=== PATIENT | female | born 1970 | race Caucasian/White ===

== ENCOUNTER 2024-04-14 23:16 | Day surgery (SDC) | payer OTHER, SELFPAY ==
[2024-04-14 23:45] VITALS: BP 175/95; PULSE 115; RESP 20; TEMP 36.8; O2SAT 99; BMI 22.0
[2024-04-15] VITALS (22 sets, daily range): BP systolic 130–187; BP diastolic 75–99; PULSE 95–122; RESP 12–20; TEMP 36.2–37.3; O2SAT 91–100; BMI 22.0
--- NOTE | 2024-04-15 | CRLHL7_ITS ---
For Patients: As a result of the Century Cures Act, medical imaging exams and procedure reports are released immediately into your electronic medical record. You may view this report before your referring provider. If you have questions, please contact your health care provider. Indication: Shortness of breath, upper abdominal pain, bilateral flank pain Technique: CTA of the chest with contrast and postcontrast CT of the abdomen and pelvis with multiplanar reformats following 95 mL Isovue 370 IV. Comparison: None Findings: Chest: Pulmonary arteries: No pulmonary embolism appreciated. Lungs: No consolidation. No effusion. No pneumothorax. Mediastinum: No acute abnormality appreciated. Lymph nodes: No gross lymphadenopathy. Soft tissues: No acute abnormality appreciated. Bones: No acute abnormality appreciated. Abdomen and Pelvis: Hepatobiliary: No significant parenchymal abnormality is appreciated. Cholelithiasis with dilated gallbladder, wall thickening, and adjacent fluid. Spleen: Unremarkable. Pancreas: No acute abnormality appreciated. Adrenal glands: No acute abnormality appreciated. Kidneys: No significant parenchymal abnormality appreciated. No visualized calculi. No hydronephrosis. Bowel: No obstruction. No focal perienteric or pericolonic stranding is appreciated. The appendix is visualized and appears unremarkable. Vascular: Calcified atherosclerosis. Lymph nodes: No gross lymphadenopathy. Peritoneum: No free air. No free fluid. : No acute abnormality appreciated. Soft tissues: No acute abnormality appreciated. Bones: No acute fracture. No lytic or blastic lesion. Impression: Acute cholecystitis. No other acute abnormality appreciated. Please note that all CT scans at this facility use dose modulation, iterative reconstruction, and/or weight-based dosing when appropriate to reduce radiation dose to as low as reasonably achievable. Dictated by Crispin Ravi MD @ 04/15/2024 1:46:20 AM (Electronically Signed)
--- NOTE | 2024-04-15 00:05 | CRLHL7_ITS ---
For Patients: As a result of the Century Cures Act, medical imaging exams and procedure reports are released immediately into your electronic medical record. You may view this report before your referring provider. If you have questions, please contact your health care provider. Indication: Right upper quadrant pain Technique: Limited abdominal ultrasound. Evaluation of the liver, gallbladder, common bile duct, pancreas, right kidney, and aorta/IVC. Grayscale and color Doppler imaging utilized. Comparison: None Findings: Liver: Unremarkable size and echotexture. Gallbladder: Multiple stones noted. Wall thickening and trace fluid. Technologist reports positive sonographic Hdez`s sign. Common bile duct: 7 mm. Pancreas: Partially obscured. Visualized portions are unremarkable. Right kidney: Unremarkable. Aorta/IVC: Unremarkable. Impression: 1. Findings suspicious for acute cholecystitis. 2. Slight dilation of the common bile duct, recommend correlation with LFTs for choledocholithiasis. If there is strong clinical concern, MRI/MRCP could be considered. Dictated by Crispin Ravi MD @ 04/15/2024 1:23:54 AM (Electronically Signed)
--- NOTE | 2024-04-15 00:08 | ED_ITS ---
HPI - Abdominal Pain General Date Seen: 04/15/24 Chief Complaint: Abdominal Pain Stated Complaint: Abdominal pain Time Seen by Provider: 04/14/24 23:53 Source: patient Mode of arrival: ambulatory Limitations: no limitations History of Present Illness HPI narrative: Patient is a 53-year-old female presenting to the emergency department for upper abdominal pain. She states she knows symptoms 1st this morning when she woke up. Last night she states she was having nausea with vomiting and diarrhea. She has no nausea is somewhat improved today and she has not vomited he has today. Denies ever having pain like this before. Is has been able to eat and drink small amounts and has not noticed any change and her symptoms when she does this. Did take Zofran which has helped with the nausea. Denies any history of kidney stones. No previous abdominal surgeries other than a C- section. States seem like most of the pain is in the right upper quadrant. Does have some pain to both flanks worse in the right flank compared to the left. No history of kidney stones. He describes the pain as a dull ache. Notes before she came in she had a short episode of left-sided chest pain that h as since fully resolved. No history of heart disease. Denies fevers, chills, weakness, numbness, headache, vision changes, headache. Does states she has some intermittent shortness of breath but she feels like it is mostly due to the pain in her epigastric region. Related Data Home Medications ?Medication ?Instructions ?Recorded ?Confirmed atorvastatin 20 mg tablet 20 mg PO QPM 04/15/24 04/15/24 lisinopril 20 mg tablet 20 mg PO DAILY 04/15/24 04/15/24 metformin 500 mg tablet,extended 1,000 mg PO BID 04/15/24 04/15/24 release 24 hr semaglutide 7 mg tablet (Rybelsus) 7 mg PO DAILY 04/15/24 04/15/24 Allergies Allergy/AdvReac Type Severity Reaction Status Date / Time ciprofloxacin Allergy Mild Hives Verified 04/15/24 01:29 doxycycline Allergy Mild Hives Verified 04/15/24 01:29 hydrochlorothiazide Allergy Mild Hives Verified 04/15/24 01:29 Penicillins Allergy Mild Hives Verified 04/15/24 01:29 Review of Systems Status of ROS Reports: 10 or more systems reviewed and unremarkable except as noted in History and below PFS PFSH Social History Smoking Status: Never smoker Second hand tobacco smoke exposure: No How often do you have a drink containing alcohol: never AUDIT-C Alcohol total score: 0 Non-prescribed substance use: denies use Exam Narrative: Exam Narrative: Const: Well-nourished, Well-developed, in mild distress Eyes: PERRL, no conjunctival injection, and symmetrical lids HENT: Atraumatic external nose and ears. Moist mucous membranes. Neck: Symmetric, trachea midline, No thyromegaly. CVS: RRR, No murmurs or gallops. Peripheral pulses 2+ and equal in all extremities RESP: Unlabored respiratory effort. Clear to auscultation bilaterally. GI: Mild upper abdominal tenderness to palpation worse in the right upper quadrant. Nondistended, No rebound or guarding. Mild bilateral flank pain worse on the right MSK:Extremities w/o deformity, Normal Active ROM Skin: Warm, Dry. No rashes or lesions. Neuro: Normal Muscle tone, No focal neurological deficits. Psych: Awake, Alert, & Oriented x3. Appropriate mood and affect. Const: Vital Signs, click to edit/add: Vital Signs - 24 hr 04/14/24 23:45 Temperature 98.2 F Pulse Rate [Right Pulse Oximeter] 115 H Respiratory Rate 20 Blood Pressure [Ri ght Upper Arm] 175/95 H Pulse Oximetry 99 Oxygen Delivery Me thod Room Air Course Vital Signs Vital signs: Initial Vital Signs Temperature 98.2 F 04/14/24 23:45 Temperature Source Temporal Artery Scan 04/14/24 23:45 Pulse Rate 115 H 04/14/24 23:45 Respiratory Rate 20 04/14/24 23:45 Blood Pressure 175/95 H 04/14/24 23:45 Blood Pressure Mean 121 H 04/14/24 23:45 Blood Pressure Position Sitting 04/14/24 23:45 Pulse Oximetry 99 04/14/24 23:45 Oxygen Delivery Method Room Air 04/14/24 23:45 Vital Signs Temperature 98.2 F 04/14/24 23:45 Pulse Rate 115 H 04/14/24 23:45 Respiratory Rate 20 04/14/24 23:45 Blood Pressure 175/95 H 04/14/24 23:45 Pulse Oximetry 99 04/14/24 23:45 Oxygen Delivery Method Room Air 04/14/24 23:45 Temperature 98.2 F 04/14/24 23:45 Pulse Rate 115 H 04/14/24 23:45 Respiratory Rate 20 04/14/24 23:45 Blood Pressure 175/95 H 04/14/24 23:45 Pulse Oximetry 99 04/14/24 23:45 Oxygen Delivery Method Room Air 04/14/24 23:45 Medications Administered Medications: Discontinued Medications Generic Name Dose Route Start Last Admin Trade Name Gela PRN Reason Stop Dose Admin Sodium Chloride 500 mls @ 1,000 mls/hr 04/15/24 00:15 04/15/24 00:56 0.9 % Sodium Chloride 500 Ml IV 04/15/24 00:44 Infused .Q30M ONE Infusion Sodium Chloride 500 mls @ 1,000 mls/hr 04/15/24 00:48 04/15/24 01:27 0.9 % Sodium Chloride 500 Ml IV 04/15/24 01:17 Infused .Q30M ONE Infusion MDM - Abdominal Pain MDM Narrative Medical decision making narrative: Patient is a 53-year-old female presenting to the emergency department for abdominal pain. Pain is in the upper abdominal region. Differential at this time includes gastritis, peptic ulcer, gallbladder or liver disease, pancreatitis. With of bilateral flank pain there is some concern for kidney stones. As she is otherwise appearing well it seems unlikely to be a ruptured AAA. Since she also had episode of chest pain and has some shortness of breath that seems to be due to her abdominal pain I will evaluate for ACS, pneumonia, pneumothorax, PE. She cannot be perced out. Will order D-dimer. Also order EKG, troponin, lipase, urinalysis, CBC, CMP, COVID/flu swab. Is not requesting anything for pain or nausea at this time. White blood cell count came back at 16.14. She now meets criteria for SIRS so lactate and blood cultures were ordered. CMP shows no concerning abnormalities other than a slightly low sodium at 01:31. Unlikely related to her symptoms. Lipase within normal limits. Urinalysis shows no concerning findings. COVID/ flu shows no concerning findings. EKG shows sinus tachycardia but no other concerning findings. Troponin within normal limits. D-dimer is elevated at 0.8 for an CTA of the chest was ordered. Lactate returned at 2.8. Patient has been given a L total of IV fluids. Her heart rates now seems to be below 110. She is satting 95-100% on room air. Vital signs of otherwise been stable. While waiting for the ultrasound since she is going to be the CT of the chest abdomen of the pelvis with IV contrast was also ordered. Ultrasound shows signs of cholecystitis. There is some mild common bile duct dilation but with normal LFTs choledocholithiasis seems unlikely. Do not believe MRI/MRCP is necessary at this time. I spoke to the on-call general surgeon, Dr. Balderrama, and she recommends admission to the hospitalist service for surgery tomorrow. Due the patient's allergies recommended her dependent. Patient is agreeable to this plan. Patient's tachycardia is likely secondary to the infection. CT scans reviewed by myself the radiologist showed no acute concerning abnormalities other than the acute cholecystitis. Lab Data Labs: Lab Results 04/15/24 04/15/24 04/15/24 Range/Units 00:00 00:10 00:40 WBC 16.14 H (4.50-11.00) K/uL RBC 4.36 (4.00-5.20) m/uL Hgb 12.5 (12.0-16.0) gm/dL Hct 37.7 (33.0-51.0) % MCV 87 (80-100) fL MCH 29 (26-34) pg MCHC 33 (32-36) gm/dL RDW Coeff of Ghassan 11.9 (11.5-15.5) % Plt Count 334 (140-440) K/uL Neut % (Auto) 77.8 H (42.0-72.0) % Lymph % (Auto) 14.9 L (20-44) % [place] % (Auto) 6.6 (0.0-11.0) % Eos % (Auto) 0.3 (0.0-7.0) % Baso % (Auto) 0.3 (0.0-3.0) % Neut # (Auto) 12.60 H (1.7-7.0) K/uL Lymph # (Auto) 2.40 (0.90-2.90) K/uL [place] # (Auto) 1.10 H (0.00-0.90) K/UL Eos # (Auto) 0.00 (0.00-0.50) K/uL Baso # (Auto) 0.00 (0.00-0.30) K/uL Abs Immat Gran (auto) 0.00 (0.00-0.30) K/uL Imm/Tot Granulo (auto) 0.1 % D-Dimer Quant (PE/DVT) 0.84 H (0.00-0.50) ug/ml Sodium 131 L (135-149) mmol/L Potassium 4.2 (3.6-5.1) mmol/L Chloride 95 L (96-114) mmol/L Carbon Dioxide 25 (20-32) mmol/L Anion Gap 11 (7-15) mEq/L BUN 13 (7-30) mg/dL Creatinine 0.5 (0.5-1.5) mg/dL Estimated Creat Clear 128.24 Estimated GFR 111 ml/min Glucose 142 H (60-115) mg/dL Lactate 2.8 H (0.5-1.9) mmol/L Calcium 10.9 H (8.4-10.6) mg/dL Total Bilirubin 0.5 (0.1-1.5) mg/dL AST 24 (12-35) U/L ALT 20 (4-35) U/L Alkaline Phosphatase 94 (40-150) U/L Total Protein 7.5 (6.0-8.3) g/dL Albumin 4.5 (3.3-5.0) g/dL Lipase 183 (23-300) U/L Urine Color Yellow (Yellow) Urine Appearance Clear (Clear) Urine pH 7.0 (5.0-8.5) Ur Specific [place] 1.020 (1.000-1.030) Urine Protein Negative (Negative) Urine Glucose (UA) Negative (Negative) Urine Ketones Trace A (Negative) Urine Blood Negative (Negative) Urine Nitrite Negative (Negative) Urine Bilirubin Negative (Negative) Urine Urobilinogen 0.2 (0.2-1.0) Ur Leukocyte Esterase 1+ A (Negative) Urine RBC 0-2 (0-2) Urine WBC 0-2 (0-5) Ur Squamous Epith Cells Few (None-Few) Urine Bacteria Few A (None) SARS-CoV-2 (PCR) Negative SARS-CoV-2 (Negative) Influenza Type A (PCR) Negative PCR FLU A (Negative) Influenza Type B (PCR) Negative PCR FLU B (Negative) POC Troponin I 0.01 (0.01-0.04) ng/ml Imaging Data CTA chest: Attestation: I have reviewed the pertinent imaging results. Radiologist's impression: Pulmonary arteries: No pulmonary embolism appreciated. Lungs: No consolidation. No effusion. No pneumothorax. Mediastinum: No acute abnormality appreciated. Lymph nodes: No gross lymphadenopathy. Soft tissues: No acute abnormality appreciated. Bones: No acute abnormality appreciated. Please note that all CT scans at this facility use dose modulation, iterative reconstruction, and/or weight-based dosing when appropriate to reduce radiation dose to as low as reasonably achievable. Dictated by Crispin Ravi MD @ 04/15/2024 1:46:[address] scan abdomen pelvis: Attestation: I have reviewed the pertinent imaging results. Radiologist's impression: Hepatobiliary: No significant parenchymal abnormality is appreciated. Cholelithiasis with dilated gallbladder, wall thickening, and adjacent fluid. Spleen: Unremarkable. Pancreas: No acute abnormality appreciated. Adrenal glands: No acute abnormality appreciated. Kidneys: No significant parenchymal abnormality appreciated. No visualized ranjana culi. No hydronephrosis. Bowel: No obstruction. No focal perienteric or pericolonic stranding is appreciated. The appendix is visualized and appears unremarkable. Vascular: Calcified atherosclerosis. Lymph nodes: No gross lymphadenopathy. Peritoneum: No free air. No free fluid. : No acute abnormality appreciated. Soft tissues: No acute abnormality appreciated. Bones: No acute fracture. No lytic or blastic lesion. Impression: Acute cholecystitis. No other acute abnormality appreciated. Please note that all CT scans at this facility use dose modulation, iterative reconstruction, and/or weight-based dosing when appropriate to reduce radiation dose to as low as reasonably achievable. Dictated by Crispin Ravi MD @ 04/15/2024 1:46:00 AM US - abdomen: Attestation: I have reviewed the pertinent imaging results. Radiologist's impression: 1. Findings suspicious for acute cholecystitis. 2. Slight dilation of the common bile duct, recommend correlation with LFTs for choledocholithiasis. If there is strong clinical concern, MRI/MRCP could be considered. Dictated by Crispin Ravi MD @ 04/15/2024 1:23:54 AM ECG Data Attestation: I personally reviewed and interpreted this ECG as follows: Prior ECG tracings: not available for review Interpretation: EKG shows sinus tachycardia with a rate of 119 beats per minute, normal intervals, normal axis, no ST or T-wave abnormalities. Discharge Plan Discharge Clinical Impression: Acute cholecystitis Patient Disposition: Admitted As Observation Condition: Stable Prescriptions: No Action atorvastatin 20 mg tablet 20 mg PO QPM lisinopril 20 mg tablet 20 mg PO DAILY metformin 500 mg tablet extended release 24 hr 1,000 mg PO BID Rybelsus 7 mg tablet 7 mg PO DAILY Follow Up/Referrals: Teresa Stockton PA-C [Primary Care Provider] -
[2024-04-15 00:17] LABS: Basophils Percent Auto 0.3 % (0.0-3.0); Eosinophils Percent Auto 0.3 % (0.0-7.0); Hematocrit 37.7 % (33.0-51.0); Hemoglobin* 12.5 gm/dL (12.0-16.0); Immature Granulocytes Pct Auto 0.1 %; Lymphocytes Percent Auto 14.9 % (20-44); Mean Corpuscular HGB Conc 33 gm/dL (32-36); Mean Corpuscular Hemoglobin 29 pg (26-34); Mean Corpuscular Volume 87 fL (80-100); Monocytes Percent Auto 6.6 % (0.0-11.0); Neutrophils Percent Auto 77.8 % (42.0-72.0); Platelet Count* 334 K/uL (140-440); RDW Coefficient of Variation % 11.9 % (11.5-15.5); Red Blood Count 4.36 m/uL (4.00-5.20); White Blood Count* 16.14 K/uL (4.50-11.00)
[2024-04-15 00:19] LABS: Slide Review Reflex No
[2024-04-15] MEDS: 0.9 % SODIUM CHLORIDE 500 ML 500 ML 1000 ML IV ×2 (00:24→00:55)
[2024-04-15 00:25] LABS: Troponin, Point-of-Care* 0.01 ng/ml (0.01-0.04)
[2024-04-15 00:29] LABS: Albumin* 4.5 g/dL (3.3-5.0)
[2024-04-15 00:30] LABS: Chloride* 95 mmol/L (96-114); Potassium* 4.2 mmol/L (3.6-5.1); Sodium* 131 mmol/L (135-149)
[2024-04-15 00:30] LABS: Appearance Urine Clear (Clear); Bilirubin Urine Negative (Negative); Blood Urine Negative (Negative); Color Urine Yellow (Yellow); Glucose Urine Negative (Negative); Ketones Urine Trace (Negative); Leukocyte Esterase Urine 1+ (Negative); Nitrite Urine Negative (Negative); Protein Urine Negative (Negative); Urobilinogen Urine 0.2 (0.2-1.0)
[2024-04-15 00:32] LABS: Alkaline Phosphatase* 94 U/L (40-150); Anion Gap 11 mEq/L (7-15); Aspartate Amino Transferase* 24 U/L (12-35); Bilirubin Total* 0.5 mg/dL (0.1-1.5); Carbon Dioxide* 25 mmol/L (20-32); Creatinine* 0.5 mg/dL (0.5-1.5); Est. Creatinine Clearance* 128.24; Estimated Glomerular Filt Rate 111 ml/min; Total Protein* 7.5 g/dL (6.0-8.3)
[2024-04-15 00:33] LABS: Alanine Aminotransferase* 20 U/L (4-35); Blood Urea Nitrogen* 13 mg/dL (7-30); Calcium* 10.9 mg/dL (8.4-10.6); D Dimer Quantitative* 0.84 ug/ml (0.00-0.50); Glucose* 142 mg/dL (60-115); Lipase* 183 U/L (23-300)
[2024-04-15 00:42] LABS: Bacteria Urine Few; RBC Urine 0-2 (0-2); Squamous Epithelial Cell Urine Few (None-Few); WBC Urine 0-2 (0-5)
[2024-04-15 00:47] LABS: Lactate Sepsis w/Reflex* 2.8 mmol/L (0.5-1.9)
[2024-04-15 00:49] LABS: PCR FLU A Negative PCR FLU A (Negative); PCR FLU B Negative PCR FLU B (Negative); SARS PCR* Negative SARS-CoV-2 (Negative)
[2024-04-15] MEDS: ERTAPENEM 1 GM in 0.9 % SODIUM CHLORIDE Mini-bag 100 ML IVPB (01:50)
[2024-04-15 02:22] LABS: Lactate Sepsis 2 Hour 2.8 mmol/L (0.5-1.9)
--- NOTE | 2024-04-15 07:03 | W.PM.TELEH&P ---
Telehealth- H&P: HPI History of Present Illness Date Seen: 04/15/24 Chief complaint: Abdominal pain Narrative: Cleopatra Acosta is seen as an Interactive Telehealth visit. Cleopatra Acosta is a 53 year old female with PMHx significant for HTN on lisinopril, type 2 diabetes on metformin and semaglutide who presented to emergency department with abdominal pain nausea and vomiting. Patient was sleeping and was easily arousable for interview. Briefly she says I came in because abdominal pain was not getting any better. She reports initially symptoms started as nausea and vomiting and then progressed to midepigastric abdominal pain which has been radiating to her back. She said I could not take the pain and decided come in for further evaluation. in ER patient was found to be tachycardic. Workup showed WBC 16.4. Hemoglobin 12.5, platelets 334. Sodium was 131, potassium 4.2, chloride 95, BUN 13, creatinine 0.5, glucose 142, initial lactate 2.8 and a repeat lactate was also 2.8. Calcium was 10.9, UA did show 1+ leukocyte Estrace urine WBC was 0-2. Nasal swab was negative for any SARS-CoV-2, influenza A or B. Patient in the ER also complained of some chest pain and cardiac workup included CTA chest which was negative. Troponin was negative. CT abdomen pelvis did show findings of cholelithiasis with dilated gallbladder, wall thickening and adjacent fluid concerning for acute cholecystitis. Abdominal ultrasound also confirmed findings suspicious for acute cholecystitis. Slight dilation of CBD recommend correlation with LFTs for choledocho cholelithiasis. General surgery was consulted and they recommended admission locally antibiotics. Hospitalist service was asked admit the patient who has been accepted by general surgery during November coagulable somnolently female with [id number] and a 3-year-old who came on when asked about anemia finale D General Generalized edema resolved bowel regimen was to go postoperatively once more. BUN (department currently taking 139 mg with negative one of the for possible lap jorge in the morning Review of Systems Narrative: Complete ROS was performed, pertinent positives and negatives per HPI. [facility] Social History What is your current living situation?: I presently have a place to live Problems where you live: no known problems Problems where you live details: N/A In the past 12 months, utilities in danger of being shut off: no In the past 12 mos, have been you worried that your food would run out before you had money to buy more?: never true In the past 12 mos, the food you bought just didn't last and you didn't have money to buy more?: never true Highest level of school completed/degree received: Bachelor's degree Smoking Status: Never smoker Second hand tobacco smoke exposure: Yes (Past) How often do you have a drink containing alcohol: 2-4 times a month Alcohol type: beer and wine How many standard drinks containing alcohol do you have on a typical day: 1 or 2 How often do you have six or more drinks on one occasion: Never AUDIT-C Alcohol total score: 2 Non-prescribed substance use: denies use Caffeine: Yes (Diet soda) How often does anyone, including family, friends and others, physically hurt you: never How often does anyone, including family, friends and others, insult or talk down to you: never How often does anyone, including family, friends and others, threaten you with harm: never How often does anyone, including family, friends and others, scream or curse at you: never service: No Meds Home Medications and Allergies Home Medications ?Medication ?Instructions ?Recorded ?Confirmed ?Type atorvastatin 20 mg tablet 20 mg PO QPM 04/15/24 04/15/24 History lisinopril 20 mg tablet 20 mg PO DAILY 04/15/24 04/15/24 History metformin 500 mg tablet,extended 1,000 mg PO BID 04/15/24 04/15/24 History release 24 hr semaglutide 7 mg tablet (Rybelsus) 7 mg PO DAILY 04/15/24 04/15/24 History Allergies Allergy/AdvReac Type Severity Reaction Status Date / Time ciprofloxacin Allergy Mild Hives Verified 04/15/24 01:29 doxycycline Allergy Mild Hives Verified 04/15/24 01:29 hydrochlorothiazide Allergy Mild Hives Verified 04/15/24 01:29 Penicillins Allergy Mild Hives Verified 04/15/24 01:29 Exam Narrative Exam Narrative: Physical Exam GENERAL: ?vital signs reviewed, well developed and nourished, in no distress HEENT: pupils are equal round and reactive to light, extraocular movements are grossly within normal limits and oral mucosa is moist. NECK: Supple HEART: Regular rate and rhythm without any rubs, murmurs, or gallops. LUNGS: Clear to auscultation bilaterally with good air movement throughout ABDOMEN: Observation from nurse assisted exam, abdomen appears soft, nontender, and nondistended with Positive bowel sounds noted. EXTREMITIES: Strength and sensation is observed to be grossly within normal limits in the upper and lower extremities.? No focal strength deficit is observed. SKIN:? Observed warm and dry with color normal Const Vital Signs, click to edit/add: Vital Signs - 24 hr 04/14/24 23:45 04/15/24 01:00 04/15/24 02:40 Temperature 98.2 F 98.2 F 98.2 F Pulse Rate [Left Pulse Oximeter] Pulse Rate [Right Pulse Oximeter] 115 H 95 95 Respiratory Rate 20 20 20 Blood Pressure [Left Arm] Blood Pressure [Right Upper Arm] 175/95 H 187/91 H 187/91 H Pulse Oximetry 99 99 Oxygen Delivery Method Room Air Room Air 04/15/24 02:43 04/15/24 02:43 Temperature 97.5 F L Pulse Rate [Left Pulse Oximeter] 99 Pulse Rate [Right Pulse Oximeter] Respiratory Rate 16 16 Blood Pressure [Left Arm] 176/99 H Blood Pressure [Right Upper Arm] Pulse Oximetry 97 97 Oxygen Delivery Method Room Air Room Air Hospitalist - H&P: Result Labs Labs: Short CBC 04/15/24 Range/Units 00:10 WBC 16.14 H (4.50-11.00) K/uL Hgb 12.5 (12.0-16.0) gm/dL Hct 37.7 (33.0-51.0) % Plt Count 334 (140-440) K/uL BMP 04/15/24 00:10 Sodium 131 L Potassium 4.2 Chloride 95 L Carbon Dioxide 25 BUN 13 Creatinine 0.5 Glucose 142 H Calcium 10.9 H Liver Function 04/15/24 Range/Units 00:10 Total Bilirubin 0.5 (0.1-1.5) mg/dL AST 24 (12-35) U/L ALT 20 (4-35) U/L Alkaline Phosphatase 94 (40-150) U/L Albumin 4.5 (3.3-5.0) g/dL Urine 11/23/24 Range/Units 00:00 Urine Color Yellow (Yellow) Urine Appearance Clear (Clear) Urine pH 7.0 (5.0-8.5) Ur Specific [place] 1.020 (1.000-1.030) Urine Protein Negative (Negative) Urine Glucose (UA) Negative (Negative) Assessment and Plan Assessment and plan (1) Acute cholecystitis: Status: Acute Plan Patient is a 53-year-old female with past medical history of type 2 diabetes, HTN who is presenting with abdominal pain nausea vomiting findings consistent with acute cholecystitis. She is also positive leukocytosis and tachycardia likely indicating sepsis. # Acute Cholecystitis #Sepsis with elevated lactate # Leukocytosis # Tachycardia - cont with IV fluids, pain medications and NPO. - general surgery eval in am. # Type 2 DM - hold oral medications - cont with sliding scale. # HTN - cont lisinopril. # DVT proph - hold for possible surgery in am. Telehealth: Statement Statement Telehealth Visit: Today's History and Physical is provided via interactive telehealth by Whit Dietz MD.? Patient is located at [facility].? Provider is located at [facility].? Nursing staff assisted with the patient's exam. The visit being done today meets criteria for a telehealth visit and the patient or patient?s parent/guardian is aware the visit is a telehealth visit. Camera Start Time: 05:52 Camera End Time: 06:01
--- NOTE | 2024-04-15 07:30 | PC.NURSE ---
End of shift note: Pt alert & oriented x 4 and able to make needs known. She transfers/ambulates independently. Pt NPO in preparation for surgery today. B/P noted to be elevated at 176/99 upon admission to med/surg though pt reports having White Coat Syndrome. Pt afebrile and on RA. She denies nausea when asked and states last BM was 04/14/24. Pt noted to tachycardic with heart rate at 117 during MD visit. MD ordering IV fluids for patient.
[2024-04-15] MEDS: cefTRIAXone 2 GM in 0.9 % SODIUM CHLORIDE Mini-bag 100 ML IVPB (07:33)
[2024-04-15] MEDS: 0.9 % SODIUM CHLORIDE 1000 ml 1,000 ML 75 ML IV (07:33)
[2024-04-15] MEDS: metroNIDAZOLE 500 MG/100 ML PIGGYBACK 100 MG IVPB ×3 (08:58→22:17)
[2024-04-15] MEDS: 5 % DEXTROSE/0.9% SOD CHLORIDE 1,000 ML 125 ML IV (10:31)
--- NOTE | 2024-04-15 14:18 | P.GSCN_ITS ---
History of Present Illness Consult details Date Seen: 04/15/24 Consult date: 04/15/24 Narrative: Patient is a 53-year-old female who presented to the emergency department with severe right upper quadrant abdominal pain. The pain came out of the blue on Wednesday night. She denies eating a large meal, but did have potato skins with posada and she is. She has never had anything like this before. Does report some associated nausea, no emesis. Her past medical history is significant for diabetes, for which she takes metformin and semaglutide. Her abdominal surgical history is positive for C-sections. Review of Systems Status of ROS: Reports: 10 or more systems reviewed and unremarkable except as noted in History and below PFSH PFSH Social History What is your current living situation?: I presently have a place to live Problems where you live: no known problems Problems where you live details: N/A In the past 12 months, utilities in danger of being shut off: no In the past 12 mos, have been you worried that your food would run out before you had money to buy more?: never true In the past 12 mos, the food you bought just didn't last and you didn't have money to buy more?: never true Highest level of school completed/degree received: Bachelor's degree Smoking Status: Never smoker Second hand tobacco smoke exposure: Yes (Past) How often do you have a drink containing alcohol: 2-4 times a month Alcohol type: beer and wine How many standard drinks containing alcohol do you have on a typical day: 1 or 2 How often do you have six or more drinks on one occasion: Never AUDIT-C Alcohol total score: 2 Non-prescribed substance use: denies use Caffeine: Yes (Diet soda) How often does anyone, including family, friends and others, physically hurt you : never How often does anyone, including family, friends and others, insult or talk down to you: never How often does anyone, including family, friends and others, threaten you with harm: never How often does anyone, including family, friends and others, scream or curse at you: never service: No Meds Home Medications and Allergies Home Medications ?Medication ?Instructions ?Recorded ?Confirmed ?Type atorvastatin 20 mg tablet 20 mg PO HS 04/15/24 04/15/24 History lisinopril 20 mg tablet 20 mg PO DAILY 04/15/24 04/15/24 History metformin 500 mg tablet,extended 1,000 mg PO BID 04/15/24 04/15/24 History release 24 hr semaglutide 7 mg tablet (Rybelsus) 7 mg PO DAILY 04/15/24 04/15/24 History Allergies Allergy/AdvReac Type Severity Reaction Status Date / Time ciprofloxacin Allergy Mild Hives Verified 04/15/24 01:29 doxycycline Allergy Mild Hives Verified 04/15/24 01:29 hydrochlorothiazide Allergy Mild Hives Verified 04/15/24 01:29 Penicillins Allergy Mild Hives Verified 04/15/24 01:29 Exam Narrative: Exam Narrative: General: Alert and oriented, no acute distress. Nontoxic Respiratory: Equal breath rise bilaterally, maintained on room air CV: Tachycardic, well perfused Abdomen: Soft, tender to palpation right upper quadrant with some guarding, no rebound. No peritonitis. Const: Vital Signs, click to edit/add: Vital Signs - 24 hr 04/14/24 23:45 04/15/24 01:00 04/15/24 02:40 Temperature 98.2 F 98.2 F 98.2 F Pulse Rate Pulse Rate [Left P ulse Oximeter] Pulse Rate [Right Pulse Oximeter] 115 H 95 95 Respiratory Rate 20 20 20 Blood Pressure [Le ft Arm] Blood Pressure [Ri ght Upper Arm] 175/95 H 187/91 H 187/91 H Pulse Oximetry 99 [facility] 04/15/24 02:43 04/15/24 02:43 04/15/24 05:55 Temperature 97.5 F L Pulse Rate Pulse Rate [Left P ulse Oximeter] 99 117 H Pulse Rate [Right Pulse Oximeter] Respiratory Rate 16 16 Blood Pressure [Le ft Arm] 176/99 H Blood Pressure [Ri ght Upper Arm] Pulse Oximetry 97 97 [facility] Room Air 04/15/24 07:30 04/15/24 07:30 04/15/24 07:30 Temperature 98.5 F Pulse Rate 116 H Pulse Rate [Left P ulse Oximeter] 116 H 116 H Pulse Rate [Right Pulse Oximeter] Respiratory Rate 16 16 Blood Pressure [Le ft Arm] 130/75 Blood Pressure [Ri ght Upper Arm] Pulse Oximetry 97 Oxygen Delivery Me thod Room Air 04/15/24 12:30 Temperature 98.8 F Pulse Rate Pulse Rate [Left P ulse Oximeter] 121 H Pulse Rate [Right Pulse Oximeter] Respiratory Rate 16 Blood Pressure [Le ft Arm] 135/83 Blood Pressure [Ri ght Upper Arm] Pulse Oximetry 96 Oxygen Delivery Me thod Room Air Results Labs Labs: Abnormal lab results 04/15/24 04/15/24 04/15/24 Range/Units 00:00 00:10 00:40 WBC 16.14 H (4.50-11.00) K/uL Neut % (Auto) 77.8 H (42.0-72.0) % Lymph % (Auto) 14.9 L (20-44) % Neut # (Auto) 12.60 H (1.7-7.0) K/uL [place] # (Auto) 1.10 H (0.00-0.90) K/UL D-Dimer Quant (PE/DVT) 0.84 H (0.00-0.50) ug/ml Sodium 131 L (135-149) mmol/L Chloride 95 L (96-114) mmol/L Glucose 142 H (60-115) mg/dL Lactate 2.8 H (0.5-1.9) mmol/L Calcium 10.9 H (8.4-10.6) mg/dL Urine Ketones Trace A (Negative) Ur Leukocyte Esterase 1+ A (Negative) Urine Bacteria Few A (None) POC Troponin I (0.01-0.04) ng/ml 04/15/24 04/15/24 Range/Units 02:06 02:18 WBC (4.50-11.00) K/uL Neut % (Auto) (42.0-72.0) % Lymph % (Auto) (20-44) % Neut # (Auto) (1.7-7.0) K/uL [place] # (Auto) (0.00-0.90) K/UL D-Dimer Quant (PE/DVT) (0.00-0.50) ug/ml Sodium (135-149) mmol/L Chloride (96-114) mmol/L Glucose (60-115) mg/dL Lactate 2.8 H (0.5-1.9) mmol/L Calcium (8.4-10.6) mg/dL Urine Ketones (Negative) Ur Leukocyte Esterase (Negative) Urine Bacteria (None) POC Troponin I 0.00 L (0.01-0.04) ng/ml Diabetes panel 04/15/24 Range/Units 00:10 Sodium 131 L (135-149) mmol/L Potassium 4.2 (3.6-5.1) mmol/L Chloride 95 L (96-114) mmol/L Carbon Dioxide 25 (20-32) mmol/L BUN 13 (7-30) mg/dL Creatinine 0.5 (0.5-1.5) mg/dL Glucose 142 H (60-115) mg/dL Calcium 10.9 H (8.4-10.6) mg/dL AST 24 (12-35) U/L ALT 20 (4-35) U/L Alkaline Phosphatase 94 (40-150) U/L Total Protein 7.5 (6.0-8.3) g/dL Albumin 4.5 (3.3-5.0) g/dL Calcium panel 04/15/24 Range/Units 00:10 Calcium 10.9 H (8.4-10.6) mg/dL Albumin 4.5 (3.3-5.0) g/dL Pituitary panel 04/15/24 Range/Units 00:10 Sodium 131 L (135-149) mmol/L Potassium 4.2 (3.6-5.1) mmol/L Chloride 95 L (96-114) mmol/L Carbon Dioxide 25 (20-32) mmol/L BUN 13 (7-30) mg/dL Creatinine 0.5 (0.5-1.5) mg/dL Glucose 142 H (60-115) mg/dL Calcium 10.9 H (8.4-10.6) mg/dL Adrenal panel 04/15/24 Range/Units 00:10 Sodium 131 L (135-149) mmol/L Potassium 4.2 (3.6-5.1) mmol/L Chloride 95 L (96-114) mmol/L Carbon Dioxide 25 (20-32) mmol/L BUN 13 (7-30) mg/dL Creatinine 0.5 (0.5-1.5) mg/dL Glucose 142 H (60-115) mg/dL Calcium 10.9 H (8.4-10.6) mg/dL Total Bilirubin 0.5 (0.1-1.5) mg/dL AST 24 (12-35) U/L ALT 20 (4-35) U/L Alkaline Phosphatase 94 (40-150) U/L Total Protein 7.5 (6.0-8.3) g/dL Albumin 4.5 (3.3-5.0) g/dL All other labs normal. Imaging CT scan - chest: report reviewed and image reviewed CT scan - pelvis: report reviewed and image reviewed Abdominal ultrasound report/results: report reviewed and image reviewed Progress Note:A&P Assessment and plan (1) Acute cholecystitis: Status: Acute Assessment and Plan: Patient presents with clinical workup and history consistent with acute cholecystitis. She does have a leukocytosis (16) and is mildly tachycardic during my examination. Her lactate was also elevated at 2.8, with repeat pending. She has continued to get IV fluids since admission and pain medicines as needed. All imaging was reviewed and significant for multiple stones within the gallbladder, wall thickening and trace fluid. LFTs are within normal limits, with low concern at this time for choledocholithiasis. I had a detailed conversation with the patient regarding the diagnosis of acute cholecystitis. We discussed the treatment options including observation with diet modification and laparoscopic cholecystectomy. We discussed the risks of surgery (including but not limited to) the risks of bleeding, infection, injury to other structures in the abdomen including bile duct injury, bile leak and conversion to an open operation. We discussed the possibility that the patient's pain not improve with surgery. We discussed the possibility of permanent post-operative diarrhea that may require medical management. Additionally, the conceivably of complications requiring additional surgery or further hospitalization were also discussed including the risks of [place], respiratory failure, stroke and blood clots. The patient voiced an understanding of our conversation, had the opportunity to ask questions, agreed to accept the risks of surgery and asked that we proceed with surgery. -OR for laparoscopic cholecystectomy -received IV ertapenem in the emergency department will give a dose of Ancef prior to incision
[2024-04-15 14:26] LABS: Lactate* 0.8 mmol/L (0.5-1.9)
[2024-04-15] MEDS: BUPIVACAINE 0.5% 30 ML INJECTION (18:30)
[2024-04-15] MEDS: LACTATED RINGERS 1000 ML 500 ML 75 ML IV (18:30)
--- NOTE | 2024-04-15 18:54 | P.GSOP_ITS ---
Operative Note Date of procedure: 04/15/24 Pre-op diagnosis: Acute cholecystitis Post-op diagnosis: Same, hydrops Type of Procedure: Laparoscopic cholecystectomy Indications: Patient is a 53-year-old female who presented to the emergency department right upper quadrant abdominal pain. Clinical workup and findings were consistent with acute cholecystitis. Risks and benefits of operative intervention were discussed at length with the patient. Risks included but was not limited to: Bleeding, infection, risk of damage to surrounding structures, possible need for additional procedures, possible need to convert to an open operation and postoperative complications such as pneumonia, pulmonary emboli or AL. All questions and concerns were addressed with the patient agreeing to proceed. Procedure Description: After discussing the risks and benefits of the procedure, the patient signed informed consent.? The operative site was marked and the patient was brought to the operating room and placed on the operating table in supine position.? Care was taken to pad the patient's pressure points.?? The patient was then intubated by anesthesia.?? The operative site was then prepped and draped in the usual sterile fashion.? A time-out was then performed. Entrance to the abdomen was gained via a 5 mm Visiport in the left upper quadrant. The abdomen was insufflated and briefly surveyed for signs of injury. There was none. 11 mm supra umbilical port was placed as well as 2 working po rts along the right costal margin. Patient was then placed in reverse Trendelenburg position with the right side up. The gallbladder fundus was distended and hemorrhagic in appearance. This was decompressed with a laparoscopic needle. Approximately 60 mL of serous, purulent drainage was removed. A specimen was sent for Gram stain and culture. Once decompressed the fundus was grasped and retracted cephalad. [A small amount of dissection was needed to free omental adhesions from the gallbladder.] The infundibulum was grasped. A combination of hook cautery and blunt dissection was used to carefully dissect out the cystic duct and artery until they could clearly be seen entering the gallbladder without any intervening structures. The tissue was very edematous, but able to be dissected with suction, a [place] and hook cautery. The gallbladder was dissected off the cystic plate to achieve the critical view. Once this was achieved the cystic artery was clipped with 2 clips proximally and 1 clip distally and transected with the scissors. The cystic duct had 2 clips placed proximally, but was very dilated due to a large gallstone within the neck of the gallbladder. The cystic duct was then transected with laparoscopic scissors distally and an 0 Vicryl endoloop was placed just proximal to the 2 clips to ensure complete ligation of the cystic duct. During this portion of the procedure some small stones and bile was spilled. The gallbladder was then taken off of the liver bed and removed from the abdomen using an Endo-Catch bag. All visible stones were placed within the bag and removed as well. The supraumbilical port was extended slightly to accommodate removal of the large stones within the gallbladder. The gallbladder bed was surveyed for hemostasis, which was excellent. The bile was then suctioned from the abdomen and the right upper quadrant irrigated. The ports were then removed. The umbilical port fascia was closed with 0 Vicryl. The skin was closed with absorbable subcuticular suture. Instrument sponge and needle counts were correct at the end of the case. The patient was then woken and transferred to the PACU in stable condition. Sterile dressings were then applied. ? Findings: Distended gallbladder, hydrops. Anesthesia: GETA Surgeon: Sveta Balderrama MD Estimated blood loss (mL): 10 Specimen: Gallbladder Condition: stable Disposition: PACU
--- NOTE | 2024-04-15 19:16 | P.ANES_ITS ---
Anesthesia Charges Start Date/Time Anesthesia Start Date: 04/15/24 Anesthesia Start Time: 17:05 Stop Date/Time Anesthesia Stop Date: 04/15/24 Anesthesia Stop Time: 19:03 Summary Emergency: PROJECT MANAGEMENT INTERN
[2024-04-15] MEDS: ATORVASTATIN 10 MG TABLET 20 MG PO (22:16)
[2024-04-16] VITALS: BP 140/84; PULSE 111; RESP 16; TEMP 37; O2SAT 95
[2024-04-16 01:11] VITALS: BP 137/86; PULSE 110; RESP 16; TEMP 36.6; O2SAT 93
[2024-04-16 03:00] VITALS: BP 139/89; PULSE 103; RESP 16; TEMP 36.6; O2SAT 94
[2024-04-16 03:54] VITALS: BP 139/89; PULSE 103; RESP 16; TEMP 36.6; O2SAT 94
--- NOTE | 2024-04-16 04:40 | PC.NURSE ---
Shift note: Pt arrived at the unit from PACU at 1930, conscious, alert and oriented. 4 LAP sites on the abdomen covered steri strip, appeared clean and dry. She arrived with 250ml of lactated ringers infusing at 75ml/hr. Patient denied pain on arrival. HR has been between 103 and 122 since admission from PACU. Blood sugar checked 5 minutes (1925) before patient's arrival to the unit from PACU was 193. Sliding scale blood sugar checked at 2100 was 154, no insulin was giving based on medical writer's discretion in consultation with the charge nurse. Maximum pain rated at this shift was 3 and pt did not want any pain medication. No bowel sound, lung sound clear.
[2024-04-16] MEDS: SODIUM CHLORIDE 0.9 % (FLUSH) 10 ML SYRINGE 5 ML IVF (05:49)
[2024-04-16] MEDS: HYDROmorphone 0.5 mg/0.5 ml inj IVP (05:49)
[2024-04-16] MEDS: cefTRIAXone 2 GM in 0.9 % SODIUM CHLORIDE Mini-bag 100 ML IVPB (06:19)
[2024-04-16 06:26] LABS: Basophils Absolute Auto 0.01 K/uL (0.00-0.30); Basophils Percent Auto 0.1 % (0.0-3.0); Eosinophils Absolute Auto 0.01 K/uL (0.00-0.50); Eosinophils Percent Auto 0.1 % (0.0-7.0); Hematocrit 33.2 % (33.0-51.0); Hemoglobin* 10.9 gm/dL (12.0-16.0); Immature Granulocytes Abs Auto 0.01 K/uL (0.00-0.30); Immature Granulocytes Pct Auto 0.1 %; Lymphocytes Percent Auto 14.6 % (20-44); Mean Corpuscular HGB Conc 33 gm/dL (32-36); Mean Corpuscular Hemoglobin 29 pg (26-34); Mean Corpuscular Volume 88 fL (80-100); Monocytes Percent Auto 7.8 % (0.0-11.0); Neutrophils Percent Auto 77.3 % (42.0-72.0); Platelet Count* 294 K/uL (140-440); RDW Coefficient of Variation % 12.4 % (11.5-15.5); Red Blood Count 3.76 m/uL (4.00-5.20); White Blood Count* 8.43 K/uL (4.50-11.00)
[2024-04-16 06:36] LABS: Slide Review Reflex No
[2024-04-16 06:47] LABS: Albumin* 3.8 g/dL (3.3-5.0); Chloride* 101 mmol/L (96-114); Sodium* 135 mmol/L (135-149)
[2024-04-16 06:48] LABS: Potassium* 4.2 mmol/L (3.6-5.1)
[2024-04-16 06:50] LABS: Alkaline Phosphatase* 66 U/L (40-150); Anion Gap 7 mEq/L (7-15); Aspartate Amino Transferase* 29 U/L (12-35); Bilirubin Total* 0.4 mg/dL (0.1-1.5); Blood Urea Nitrogen* 11 mg/dL (7-30); Carbon Dioxide* 27 mmol/L (20-32); Creatinine* 0.6 mg/dL (0.5-1.5); Est. Creatinine Clearance* 106.87; Estimated Glomerular Filt Rate 106 ml/min; Total Protein* 6.5 g/dL (6.0-8.3)
[2024-04-16 06:51] LABS: Alanine Aminotransferase* 29 U/L (4-35); Calcium* 9.2 mg/dL (8.4-10.6); Glucose* 113 mg/dL (60-115)
[2024-04-16 07:00] VITALS: PULSE 101
[2024-04-16] MEDS: metroNIDAZOLE 500 MG/100 ML PIGGYBACK 100 MG IVPB (07:02)
[2024-04-16 07:30] VITALS: BP 125/82; PULSE 98; RESP 16; TEMP 36.3; O2SAT 95
[2024-04-16] MEDS: OXYCODONE 5 MG TABLET PO (11:11)
[2024-04-16] MEDS: ACETAMINOPHEN 325 MG TABLET 650 MG PO (11:12)
--- NOTE | 2024-04-16 12:34 | PM.DS1 ---
DS: Providers Provider Date Seen: 04/16/24 Primary care physician: Teresa Stockton PA-C Attending Physician on discharge: Sveta Balderrama MD DS: Summary Hospital Course Hospital Course: Patient presented to the emergency department with a clinical history and workup consistent for acute cholecystitis. She was taken to the operating room for a laparoscopic cholecystectomy. Intraoperatively there was some purulent mucus within the gallbladder and evidence of peritonitis in the right upper quadrant. She continued on IV antibiotics postoperatively and was transition to oral antibiotics prior to discharge. An order for Augmentin, to complete a 7 day course was sent to her pharmacy. At the time of discharge she had been afebrile for 24 hours and had normalization of her leukocytosis. At the time of discharge the patient was tolerating regular diet, ambulating without difficulty and pain was well controlled. Time Spent with Patient Time attestation: Total time spent providing and/or coordinating discharge services: Exam Narrative: Exam Narrative: General: Alert and oriented, no acute distress Respiratory: Equal breath rise bilaterally, maintained on room air CV: Well perfused Abdomen: Soft, appropriately tender over incision sites. Steri-Strips in place clean/dry/intact Const: Vital Signs, click to edit/add: Vital Signs - 24 hr 04/15/24 15:30 04/15/24 15:30 04/15/24 15:30 Temperature 99.2 F Pulse Rate 106 H Pulse Rate [Left P ulse Oximeter] 106 H 120 H Respiratory Rate 16 16 Blood Pressure Blood Pressure [Le ft Arm] 138/82 Pulse Oximetry 98 Oxygen Delivery Me thod Room Air 04/15/24 19:04 04/15/24 19:07 04/15/24 19:12 Temperature 97.2 F L Pulse Rate 120 H 117 H 117 H Pulse Rate [Left P ulse Oximeter] Respiratory Rate 12 12 12 Blood Pressure 151/86 H 147/83 H 147/85 H Blood Pressure [Le ft Arm] Pulse Oximetry 91 100 94 Oxygen Delivery Me thod Room Air Room Air 04/15/24 19:18 04/15/24 19:25 04/15/24 19:25 Temperature 97.3 F L 99 F 99 F Pulse Rate 121 H 122 H 122 H Pulse Rate [Left P ulse Oximeter] Respiratory Rate 14 16 16 Blood Pressure 141/81 H 144/91 H 144/91 H Blood Pressure [Le ft Arm] Pulse Oximetry 93 94 94 Oxygen Delivery Me thod Room Air Room Air Room Air 04/15/24 19:45 04/15/24 20:00 04/15/24 20:15 Temperature 99.1 F 98.9 F 98.8 F Pulse Rate 121 H 117 H 116 H Pulse Rate [Left P ulse Oximeter] Respiratory Rate 16 16 16 Blood Pressure 155/87 H 148/79 H 147/90 H Blood Pressure [Le ft Arm] Pulse Oximetry 93 93 93 Oxygen Delivery Me thod Room Air Room Air Room Air 04/15/24 20:30 04/15/24 21:00 04/15/24 21:36 Temperature 99 F 98.9 F 98.7 F Pulse Rate 117 H 117 H 119 H Pulse Rate [Left P ulse Oximeter] Respiratory Rate 16 16 16 Blood Pressure 150/91 H 151/93 H 150/95 H Blood Pressure [Le ft Arm] Pulse Oximetry 93 93 93 Oxygen Delivery Me thod Room Air Room Air Room Air 04/15/24 21:44 04/15/24 22:00 04/15/24 22:13 Temperature 98.7 F 98.7 F 98.7 F Pulse Rate 119 H 117 H Pulse Rate [Left P ulse Oximeter] 117 H Respiratory Rate 16 16 16 Blood Pressure 150/95 H 153/83 H Blood Pressure [Le ft Arm] 153/83 H Pulse Oximetry 93 94 94 Oxygen Delivery Me thod Room Air Room Air Room Air 04/15/24 22:13 04/15/24 22:13 04/15/24 23:00 Temperature 98.7 F 98.9 F Pulse Rate 117 H 119 H Pulse Rate [Left P ulse Oximeter] Respiratory Rate 16 16 16 Blood Pressure 153/83 H 150/86 H Blood Pressure [Le ft Arm] Pulse Oximetry 94 95 Oxygen Delivery Me thod Room Air Room Air 04/15/24 23:00 04/16/24 00:00 04/16/24 01:11 Temperature 98.6 F 97.9 F Pulse Rate 113 H 111 H 110 H Pulse Rate [Left P ulse Oximeter] Respiratory Rate 16 16 Blood Pressure 140/84 H 137/86 Blood Pressure [Le ft Arm] Pulse Oximetry 95 93 Oxygen Delivery Me thod Room Air Room Air 04/16/24 03:00 04/16/24 03:00 04/16/24 03:54 Temperature 98 F 98 F 98 F Pulse Rate 103 H 103 H Pulse Rate [Left P ulse Oximeter] 103 H Respiratory Rate 16 16 16 Blood Pressure 139/89 139/89 Blood Pressure [Le ft Arm] 139/89 Pulse Oximetry 94 94 94 Oxygen Delivery Me thod Room Air Room Air Room Air 04/16/24 07:00 04/16/24 07:30 04/16/24 07:30 Temperature 97.4 F L Pulse Rate 101 H Pulse Rate [Left P ulse Oximeter] 98 Respiratory Rate 16 16 Blood Pressure Blood Pressure [Le ft Arm] 125/82 Pulse Oximetry 95 Oxygen Delivery Me thod Room Air DS: Data Data Completed and Pending Labs on day of discharge: Labs from last 24 hours 04/16/24 04/15/24 06:02 14:10 WBC 8.43 RBC 3.76 L Hgb 10.9 L Hct 33.2 MCV 88 MCH 29 MCHC 33 RDW Coeff of Ghassan 12.4 Plt Count 294 Neut % (Auto) 77.3 H Lymph % (Auto) 14.6 L [place] % (Auto) 7.8 Eos % (Auto) 0.1 Baso % (Auto) 0.1 Neut # (Auto) 6.50 Lymph # (Auto) 1.20 [place] # (Auto) 0.70 Eos # (Auto) 0.01 Baso # (Auto) 0.01 Abs Immat Gran (auto) 0.01 Imm/Tot Granulo (auto) 0.1 Sodium 135 Potassium 4.2 Chloride 101 Carbon Dioxide 27 Anion Gap 7 BUN 11 Creatinine 0.6 Estimated Creat Clear 106.87 Estimated GFR 106 Glucose 113 Lactate 0.8 Calcium 9.2 Total Bilirubin 0.4 AST 29 ALT 29 Alkaline Phosphatase 66 Total Protein 6.5 Albumin 3.8 Preliminary micro results at discharge 04/15/24 00:40 Blood Culture - Preliminary Blood NO GROWTH AFTER 24 HOURS 04/15/24 00:00 Urine Culture - Preliminary Urine,Clean Catch NO GROWTH AFTER 24 HOURS 04/15/24 18:33 Aerobic Culture - Preliminary Gallbladder Culture in Progress Discharge Plan Discharge Disposition: Home w/ Parent or Adult Discharging Surgeon: Sveta Balderrama Follow-Up Appointment: 2 week follow up, [facility] Prescriptions: New hydrocodone-acetaminophen 5-325 mg tablet 1 tab PO Q6H PRN (Reason: pain) Qty: 20 0RF senna 8.6 mg capsule 8.6 mg PO DAILY PRN (Reason: constipation) Qty: 90 0RF amoxicillin-pot clavulanate 875-125 mg tablet 1 tab PO BID Qty: 14 0RF Continued atorvastatin 20 mg tablet 20 mg PO HS lisinopril 20 mg tablet 20 mg PO DAILY metformin 500 mg tablet extended release 24 hr 1,000 mg PO BID Rybelsus 7 mg tablet 7 mg PO DAILY Activity Level: No strenuous activity Activity Detail: Activity as tolerated. Avoid strenuous activity. No lifting greater than 20 lb for 2 weeks. Discharge Diet: Low Fat/Low Cholesterol Diet Detail: Continue on a low-fat diet for the next 2 weeks. After 2 weeks you can start introducing more fatty foods. Patient Instructions: Hydrocodone/Acetaminophen (By mouth), Amoxicillin/Clavulanate Potassium (By mouth), Senna (By mouth), General Anesthesia (DC), Laparoscopic Cholecystectomy (DC), Post-Operative Instructions: Laparoscopic Cholecystectomy Additional Instructions: You were prescribed a narcotic pain medication. In addition you may supplement with Tylenol and/or ibuprofen. Be sure to not exceed greater than 4 g of Tylenol in a 24 hour period. While on narcotic pain medicine please take stool softeners. A prescription of stool softeners has been sent to the pharmacy. Stop if having greater than 2 stools per day. You have been prescribed an antibiotic. Please take this as instructed. Call if you start to develop increasing right-sided pain or fevers. You have Steri-Strips dressings in place, allow these to fall off on their own. Okay to shower starting tomorrow. Do not soak in a bath or swim for 2 weeks. Follow-up with Dr. Balderrama in 2-3 weeks. Please call if you are experiencing severe pain, nausea, vomiting, difficulty urinating, fever or not had a bowel movement in 4 days after surgery. Follow-up: Sveta Balderrama MD [Staff Physician] - (Please call [phone] on Wednesday to schedule a follow up appointment with Dr. Balderrama for 2-3 weeks out ) Teresa Stockton PA-C [Primary Care Provider] - Discharge Orders: Discharge Order (Routine); Ordered 04/16/24 Ordered By: Sveta Balderrama
== END 2024-04-16 01:44 | disposition home or self-care (01) ==
LOC: ED 04-15 01:50 → OR 04-15 02:33 → MEDSURG 04-15 02:34
PROVIDERS: Emergency Provider Student in an Organized Health Care Education/Training Program; PCP Student in an Organized Health Care Education/Training Program; Visit Provider Surgery
PROC: 0FT44ZZ Resection of Gallbladder, Percutaneous Endoscopic Approach (ICD-10-PCS; CPT 47562; principal; 2024-04-15 18:00)
DX: K80.00 Calculus of gallbladder with acute cholecystitis without obstruction (principal); K82.1 Hydrops of gallbladder; E11.9 Type 2 diabetes mellitus without complications; Z79.84 Long term (current) use of oral hypoglycemic drugs; Z79.85 Long-term (current) use of injectable non-insulin antidiabetic drugs; R00.0 Tachycardia, unspecified; R11.2 Nausea with vomiting, unspecified; R10.11 Right upper quadrant pain; R19.7 Diarrhea, unspecified; I10 Essential (primary) hypertension
CPT/HCPCS: 47562; 00790; 36415; 71275; 74177; 76705; 80053; 81001; 82962; 83605; 83690; 84484; 85025; 85379; 87040; 87070; 87075; 87086; 87186; 87205; 87631; 88304; 93005; 99140; 99285; A9270; J0330; J0665; J0696; J1100; J1171; J1335; J1836; J1885; J2250; J2371; J2704; J3010; J3490; J7030; J7042; J7120; P9047; Q9967